=== PATIENT | female | born 1980 | race Caucasian/White ===

== ENCOUNTER 2020-11-13 08:01 | Day surgery (SDC) | payer OTHER ==
[~2020-11-13 08:01] MED LIST: DOXYCYCLINE HY100 MG PO; PRENATAL 19 TA1 EAC1 PO; TYLENOL-CODEINE1 TAB PO
[2020-11-13] MEDS ORDERED: MORGIDOX100 MG PO (11:40)
[2020-11-13] MEDS ORDERED: NAPR500T14 PO (11:40)
== END 2020-11-13 17:05 | disposition home or self-care (01) ==
LOC: CIR.AMB 08:01
PROVIDERS: ATTEND Obstetrics & Gynecology
DX: D25.0 Submucous leiomyoma of uterus (principal); N84.0 Polyp of corpus uteri; N72 Inflammatory disease of cervix uteri; Z20.822 Contact with and (suspected) exposure to COVID-19

== ENCOUNTER 2022-01-22 08:33 | Outpatient (CLI) | payer OTHER ==
[~2022-01-22 08:33] MED LIST changes: +MORGIDOX100 MG PO; +NAPR500T14 PO
== END 2022-01-22 10:15 | disposition home or self-care (01) ==
LOC: PRENATAL 08:33
PROVIDERS: ATTEND Obstetrics & Gynecology Maternal & Fetal Medicine
DX: O35.0XX0 Maternal care for (suspected) central nervous system malformation in fetus, not applicable or unspecified (principal); Z3A.21 21 weeks gestation of pregnancy; O35.3XX0 Maternal care for (suspected) damage to fetus from viral disease in mother, not applicable or unspecified; O09.529 Supervision of elderly multigravida, unspecified trimester; O34.10 Maternal care for benign tumor of corpus uteri, unspecified trimester

== ENCOUNTER 2022-02-11 20:29 | Outpatient (CLI) | payer OTHER | END 2022-02-11 21:15 | disposition home or self-care (01) | LOC: OBS/DEL 20:29 | PROVIDERS: ATTEND Student in an Organized Health Care Education/Training Program | DX: O23.592 Infection of other part of genital tract in pregnancy, second trimester (principal); Z3A.24 24 weeks gestation of pregnancy ==

== ENCOUNTER 2022-02-15 08:10 | Outpatient (CLI) | payer OTHER | END 2022-02-15 09:00 | disposition home or self-care (01) | LOC: PRENATAL 08:10 | PROVIDERS: ATTEND Obstetrics & Gynecology Maternal & Fetal Medicine | DX: O26.849 Uterine size-date discrepancy, unspecified trimester (principal); O26.879 Cervical shortening, unspecified trimester; O60.00 Preterm labor without delivery, unspecified trimester; Z3A.25 25 weeks gestation of pregnancy ==

== ENCOUNTER 2022-04-09 10:22 | Outpatient (CLI) | payer OTHER | END 2022-04-09 11:50 | disposition home or self-care (01) | LOC: PRENATAL 10:22 | PROVIDERS: ATTEND Obstetrics & Gynecology Maternal & Fetal Medicine | DX: O26.849 Uterine size-date discrepancy, unspecified trimester (principal); O36.8199 Decreased fetal movements, unspecified trimester, other fetus; O09.529 Supervision of elderly multigravida, unspecified trimester; Z3A.32 32 weeks gestation of pregnancy; O34.10 Maternal care for benign tumor of corpus uteri, unspecified trimester; O26.879 Cervical shortening, unspecified trimester ==

== ENCOUNTER 2022-05-04 08:26 | Outpatient (CLI) | payer OTHER | END 2022-05-04 10:13 | disposition home or self-care (01) | LOC: PRENATAL 08:26 | PROVIDERS: ATTEND Obstetrics & Gynecology Maternal & Fetal Medicine | DX: O26.849 Uterine size-date discrepancy, unspecified trimester (principal); O36.8199 Decreased fetal movements, unspecified trimester, other fetus; O09.529 Supervision of elderly multigravida, unspecified trimester; O34.10 Maternal care for benign tumor of corpus uteri, unspecified trimester; O26.879 Cervical shortening, unspecified trimester; O36.5990 Maternal care for other known or suspected poor fetal growth, unspecified trimester, not applicable or unspecified; Z3A.36 36 weeks gestation of pregnancy ==

== ENCOUNTER 2022-05-13 06:16 | Inpatient (IN) | payer OTHER ==
[~2022-05-13] VITALS: Ht 157.5 cm; Wt 89.4 kg
[2022-05-13] MEDS ORDERED: OBSTETRX ONE 38-1-22 PO (07:21)
== END 2022-05-15 12:32 | disposition home or self-care (01) | DRG 807 ==
LOC: LDR 06:16 → OB/GYN 14:12
PROVIDERS: ADMIT Obstetrics & Gynecology; ATTEND Obstetrics & Gynecology
PROC: 10E0XZZ Delivery of Products of Conception, External Approach (ICD-10-PCS; principal; 2022-05-13)
PROC: 0HQ9XZZ Repair Perineum Skin, External Approach (ICD-10-PCS; 2022-05-13)
PROC: 3E033VJ Introduction of Other Hormone into Peripheral Vein, Percutaneous Approach (ICD-10-PCS; 2022-05-13)
PROC: 4A1HXCZ Monitoring of Products of Conception, Cardiac Rate, External Approach (ICD-10-PCS; 2022-05-13)
DX: O70.1 Second degree perineal laceration during delivery (principal); Z3A.37 37 weeks gestation of pregnancy; Z37.0 Single live birth; Z20.822 Contact with and (suspected) exposure to COVID-19